=== PATIENT | female | born 1970 | race Caucasian/White ===

== ENCOUNTER 2017-11-25 11:52 | Emergency (ER) | payer BC ==
--- NOTE | 2017-11-25 11:59 | EDM.PDOC ---
ED HPI GENERAL MEDICAL PROBLEM - General Chief Complaint: Respiratory Problem Stated Complaint: TROUBLE BREATHING Time Seen by Provider: 11/25/17 11:59 Source of Information: Reports: Patient History Limitations: Reports: No Limitations - History of Present Illness INITIAL COMMENTS - FREE TEXT/NARRATIVE: HISTORY AND PHYSICAL: History of present illness: Patient is a 47-year-old female who presents to the emergency room today with complaints of cough, fever (unrecorded) and wheezing x 2 days. She denies any previous history of respiratory illnesses or complaints. Has been using Motrin [id number] to help with her pain and fever. Denies any chest pain, shortness of breath, abdominal pain, nausea, vomiting or diarrhea. Review of systems: As per history of present illness and below otherwise all systems reviewed and negative. Past medical history: As per history of present illness and as reviewed below otherwise noncontributory. Surgical history: As per history of present illness and as reviewed below otherwise noncontributory. Social history: No reported history of drug or alcohol abuse. Family history: As per history of present illness and as reviewed below otherwise noncontributory. Physical exam: HEENT: Atraumatic, normocephalic, pupils reactive, negative for conjunctival pallor or scleral icterus, mucous membranes moist, throat clear, neck supple, nontender, trachea midline. Lungs: Clear to auscultation, breath sounds equal bilaterally, chest nontender. Heart: S1S2, regular, negative for clicks, rubs, or JVD. Abdomen: Soft, nondistended, nontender. Negative for masses or hepatosplenomegaly. Negative for costovertebral tenderness. Pelvis: Stable nontender. Genitourinary: Deferred. Rectal: Deferred. Extremities: Atraumatic, negative for cords or calf pain. Neurovascular unremarkable. Neuro: Awake, alert, oriented. Cranial nerves II through XII unremarkable. Cerebellum unremarkable. Motor and sensory unremarkable throughout. Exam nonfocal. +Influenza A screening. X-ray reading from radiology shows no infiltrates or sign of pneumonia. Reviewing the x-ray with Dr Abdullahi do note some infiltrate to the right middle/lower lobe. We'll treat the patient with a Z-Frandy, Medrol Dosepak, albuterol inhaler and some Phenergan with codeine. Supportive care measures were discussed with patient. She states she'll follow up with primary care provider in the next couple days. Return to the ED as needed. She denies any further questions or concerns. Diagnostics: Influenza, CXR Therapeutics: Bo Impression: Atypical Pneumonia Influenza A Plan: 1. Contact precautions as you have tested positive for Influenza A. Good handwashing, covering your mouth, etc... 2. Please take her medications as directed. An antibiotic, medrol dosepak ( steriod), inhaler, and cough medication have been given to you. The Phenergan with codeine may cause drowsiness so do not take it while driving or needing to be functioning at work. You may take 1-2 teaspoons every 4 hours as needed. 3. Follow up with her primary caregiver in the next 1-2 days. Return to the ED as needed and as discussed. Definitive disposition and diagnosis as appropriate pending reevaluation and review of above. Duration: Day(s): Location: Reports: Chest - Related Data Allergies Allergy/AdvReac Type Severity Reaction Status Date / Time No Known Allergies Allergy Verified 11/25/17 12:01 Home Meds: Home Meds Dextroamphetamine/Amphetamine [Adderall 20 mg Tablet] 20 mg PO BID 11/25/17 [ History] Topiramate 50 mg PO BID 11/25/17 [History] ED ROS GENERAL - Review of Systems Review Of Systems: ROS reveals no pertinent complaints other than HPI. ED EXAM, GENERAL - Physical Exam Exam: See Below (See dictation) Course - Vital Signs Last Recorded V/S: Last Vital Signs Temp 98.8 F 11/25/17 12:06 Pulse 94 11/25/17 12:06 Resp 18 11/25/17 12:06 BP 147/91 H 11/25/17 12:06 Pulse Ox 97 11/25/17 12:06 - Orders/Labs/Meds Orders: Active Orders 24 hr Category Date Time Status RT Aerosol Therapy [RC] ASDIRECTED Care 11/25/17 12:47 Active Meds: Medications Discontinued Medications Generic Name Dose Route Start Last Admin Trade Name Freq PRN Reason Stop Dose Admin Albuterol/Ipratropium 3 ml 11/25/17 12:47 11/25/17 12:57 Duoneb 3.0-0.5 Mg/3 Ml NEB 11/25/17 12:48 3 ml ONETIME ONE Administration Departure - Departure Time of Disposition: 13:23 Disposition: Home, Self-Care 01 Clinical Impression: Influenza A, Atypical pneumonia - Discharge Information Forms: ED Department Discharge Additional Instructions: My general discharge The following information is given to patients seen in the emergency department who are being discharged to home. This information is to outline your options for follow-up care. We provide all patients seen in our emergency department with a follow-up referral. The need for follow-up, as well as the timing and circumstances, are variable depending upon the specifics of your emergency department visit. If you don't have a primary care physician on staff, we will provide you with a referral. We always advise you to contact your personal physician following an emergency department visit to inform them of the circumstance of the visit and for follow-up with them and/or the need for any referrals to a consulting specialist. The emergency department will also refer you to a specialist when appropriate. This referral assures that you have the opportunity for follow-up care with a specialist. All of these measure are taken in an effort to provide you with optimal care, which includes your follow-up. Under all circumstances we always encourage you to contact your private physician who remains a resource for coordinating your care. When calling for follow-up care, please make the office aware that this follow-up is from your recent emergency room visit. If for any reason you are refused follow-up, please contact the [facility] at and asked to speak to the emergency department charge nurse. [facility] [address] [place] [id number] 1. Contact precautions as you have tested positive for Influenza A. Good handwashing, covering your mouth, etc... 2. Please take her medications as directed. An antibiotic, medrol dosepak ( steriod), inhaler, and cough medication have been given to you. The Phenergan with codeine may cause drowsiness so do not take it while driving or needing to be functioning at work. You may take 1-2 teaspoons every 4 hours as needed. 3. Follow up with her primary caregiver in the next 1-2 days. Return to the ED as needed and as discussed. - My Orders Last 24 Hours: My Active Orders 11/25/17 12:47 RT Aerosol Therapy [RC] ASDIRECTED - Assessment/Plan Last 24 Hours: My Active Orders 11/25/17 12:47 RT Aerosol Therapy [RC] ASDIRECTED
[2017-11-25] MEDS ORDERED: Albuterol/Ipratropium 3.0-0.5 MG/3 ML Neb Soln NEB ONE (12:47)
--- NOTE | 2017-11-25 13:04 | CR ---
EXAMINATION: Two-view chest (PA and Lateral views). HISTORY: Shortness of breath. FINDINGS: The trachea is midline. The cardiomediastinal silhouette is within normal limits. No pulmonary infilt rates, effusions or pneumothorax. Osseous structures appear unremarkable. IMPRESSION: No acute cardiopulmonary process.
== END 2017-11-25 14:50 | disposition home or self-care (01) ==
LOC: MW.ED 11:52
DX: J10.1 Influenza due to other identified influenza virus with other respiratory manifestations (principal); J18.9 Pneumonia, unspecified organism
CPT/HCPCS: 71046; 71046-26; 87804; 94640; 99284-25